=== PATIENT | female | born 2000 | race Caucasian/White ===

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

== ENCOUNTER → 2020-03-13 | Outpatient (CLI) | payer BC ==
[2020-03-13 17:25] LABS: Campylobacter Sp Not Detected (NOT DETECT); Enteroaggregative E. coli-EAEC Not Detected (NOT DETECT); Enteropathogenic E. coli-EPEC Not Detected (NOT DETECT); Enterotoxigenic E. coli-ETEC Not Detected (NOT DETECT); Plesiomonas Shigelloides Not Detected (NOT DETECT); Salmonella Sp Not Detected (NOT DETECT); Shiga Toxin-prod E. coli-STEC Not Detected (NOT DETECT); Vibrio Cholerae Not Detected (NOT DETECT); Vibrio Sp Not Detected (NOT DETECT); Yersinia Enterocolitica Not Detected (NOT DETECT)
[2020-03-13 17:26] LABS: Adenovirus F 40/41 Not Detected (NOT DETECT); Astrovirus Not Detected (NOT DETECT); Cryptosporidium Not Detected (NOT DETECT); Cyclospora Cayetanensis Not Detected (NOT DETECT); E. Coli O157 Not Detected (NOT DETECT); Entamoeba Histolytica Not Detected (NOT DETECT); Giardia Lamblia Not Detected (NOT DETECT); Norovirus GI/GII Not Detected (NOT DETECT); Rotavirus A Not Detected (NOT DETECT); Sapovirus Not Detected (NOT DETECT); Shigella/Enteroin E. coli-EIEC Not Detected (NOT DETECT)
== END | disposition home or self-care (01) ==
LOC: LAB 13:00 → LAB SHORT 13:00
PROVIDERS: Physician Assistant
DX: R19.7 Diarrhea, unspecified (principal)
CPT/HCPCS: 0097U; 87324

== ENCOUNTER 2020-11-11 05:35 | Inpatient (IN) | payer BC, OTHER ==
[~2020-11-11] VITALS: Ht 157.5 cm; Wt 83.6 kg
[2020-11-11] MEDS ORDERED: ONDA4 (06:13)
[2020-11-11] MEDS ORDERED: iron PO (06:16)
[2020-11-11 06:28] LABS: BASOPHILS ABSOLUTE AUTO 0.03 K/mm3 (0.00-0.23); BASOPHILS PERCENT AUTO 0 % (0-2); EOSINOPHILS ABSOLUTE AUTO 0.11 K/mm3 (0.00-0.68); EOSINOPHILS PERCENT AUTO 1 % (0-6); Hematocrit 37.5 % (33.0-51.0); Hemoglobin 12.6 g/dL (11.5-16.0); IMMATURE GRAN ABSOLUTE AUTO 0.11 K/mm3 (0.00-0.10); IMMATURE GRAN PERCENT AUTO 1 % (0-1); LYMPHOCYTES ABSOLUTE AUTO 2.49 K/mm3 (0.84-5.20); LYMPHOCYTES PERCENT AUTO 18 % (21-46); MONOCYTES PERCENT AUTO 6 % (4-13); Mean Corpuscular HGB 27.3 pg (26.0-34.0); Mean Corpuscular HGB Conc 33.6 g/dL (31.5-36.5); Mean Corpuscular Volume 81 fL (80-100); Mean Platelet Volume 10.3 fL (9.1-12.4); NEUTROPHILS ABSOLUTE AUTO 10.32 K/mm3 (1.96-9.15); NEUTROPHILS PERCENT AUTO 74 % (41-73); Platelet Count 232 K/mm3 (150-400); RDW Coefficient Variation 13.2 % (11.7-14.2); RDW Standard Deviation 38.9 fL (35.1-46.3); Red Blood Cell Count 4.61 M/mm3 (3.80-5.20); White Blood Cell Count 13.96 K/mm3 (4.00-11.30)
[2020-11-11 06:54] LABS: Influenza A, PCR NEGATIVE (NEGATIVE); Influenza B, PCR NEGATIVE (NEGATIVE); Resp Syncytial Virus, PCR NEGATIVE (NEGATIVE); SARS-Cov-2 (COVID-19) PCR, MMC NEGATIVE (NEGATIVE)
[2020-11-11] MEDS ORDERED: IBUP800 PO (18:35)
== END 2020-11-11 21:05 | disposition home or self-care (01) | DRG 807 ==
LOC: OBS 05:35 → BC 05:35 → OBS 06:08 → BC 06:10
PROVIDERS: Registered Nurse Community Health; ADMIT Advanced Practice Midwife
PROC: 10E0XZZ Delivery of Products of Conception, External Approach (ICD-10-PCS; principal; 2020-11-11)
PROC: 00HU33Z Insertion of Infusion Device into Spinal Canal, Percutaneous Approach (ICD-10-PCS; 2020-11-11)
PROC: 3E0R3BZ Introduction of Anesthetic Agent into Spinal Canal, Percutaneous Approach (ICD-10-PCS; 2020-11-11)
DX: O48.0 Post-term pregnancy (principal); Z37.0 Single live birth; Z3A.40 40 weeks gestation of pregnancy; O99.214 Obesity complicating childbirth; E66.9 Obesity, unspecified
CPT/HCPCS: 0241U; 36415; 51702; 85025; 86850; 86900; 86901; A9270; J2001; J2590; J3010; J7120

== ENCOUNTER → 2021-04-24 | Outpatient (CLI) | payer BC, OTHER ==
[~2021-04-24] MED LIST changes: +IBUP800 PO; +ONDA4; +iron PO
== END ==
LOC: LAB 16:15 → LAB SHORT 16:15
DX: J02.9 Acute pharyngitis, unspecified (principal)
CPT/HCPCS: 87081; 87147

== ENCOUNTER 2022-05-07 01:43 | Day surgery (SDC) | payer BC, OTHER ==
[~2022-05-07 01:43] MED LIST changes: +ONDA4 PO
== END 2022-05-07 16:06 | disposition home or self-care (01) ==
LOC: ATC 01:43
DX: O21.1 Hyperemesis gravidarum with metabolic disturbance (principal); R39.198 Other difficulties with micturition; Z3A.08 8 weeks gestation of pregnancy
CPT/HCPCS: 99211; J2765; J7121

== ENCOUNTER 2022-11-11 19:52 | Inpatient (IN) | payer BC, OTHER ==
[~2022-11-11] VITALS: Ht 157.5 cm; Wt 83.6 kg
[2022-11-11 21:08] LABS: BASOPHILS ABSOLUTE AUTO 0.03 K/mm3 (0.00-0.23); BASOPHILS PERCENT AUTO 0 % (0-2); EOSINOPHILS ABSOLUTE AUTO 0.09 K/mm3 (0.00-0.68); EOSINOPHILS PERCENT AUTO 1 % (0-6); Hematocrit 31.8 % (33.0-51.0); Hemoglobin 10.3 g/dL (11.5-16.0); IMMATURE GRAN ABSOLUTE AUTO 0.04 K/mm3 (0.00-0.10); IMMATURE GRAN PERCENT AUTO 0 % (0-1); LYMPHOCYTES ABSOLUTE AUTO 2.73 K/mm3 (0.84-5.20); LYMPHOCYTES PERCENT AUTO 24 % (21-46); MONOCYTES ABSOLUTE AUTO 0.43 K/mm3 (0.16-1.47); MONOCYTES PERCENT AUTO 4 % (4-13); Mean Corpuscular HGB 24.9 pg (26.0-34.0); Mean Corpuscular HGB Conc 32.4 g/dL (31.5-36.5); Mean Corpuscular Volume 77 fL (80-100); Mean Platelet Volume 11.2 fL (9.1-12.4); NEUTROPHILS ABSOLUTE AUTO 8.13 K/mm3 (1.96-9.15); NEUTROPHILS PERCENT AUTO 71 % (41-73); Platelet Count 221 K/mm3 (150-400); Red Blood Cell Count 4.13 M/mm3 (3.80-5.20); White Blood Cell Count 11.45 K/mm3 (4.00-11.30)
[2022-11-11] MEDS ORDERED: METF500 PO (21:33)
[2022-11-11] MEDS ORDERED: PROM25 PO (21:39)
[2022-11-13 05:44] LABS: Hematocrit 29.4 % (33.0-51.0); Hemoglobin 9.2 g/dL (11.5-16.0); Mean Corpuscular HGB 24.7 pg (26.0-34.0); Mean Corpuscular HGB Conc 31.3 g/dL (31.5-36.5); Mean Corpuscular Volume 79 fL (80-100); Platelet Count 216 K/mm3 (150-400); RDW Coefficient Variation 14.2 % (11.7-14.2); RDW Standard Deviation 40.6 fL (35.1-46.3); Red Blood Cell Count 3.72 M/mm3 (3.80-5.20); White Blood Cell Count 13.52 K/mm3 (4.00-11.30)
[2022-11-13 05:54] LABS: Glucose, Blood 115 mg/dL (70-99)
[2022-11-13] MEDS ORDERED: IBUP800 PO (09:46)
[2022-11-13] MEDS ORDERED: PRENATAL TABLE1 EAC2 PO (09:46)
== END 2022-11-13 10:40 | disposition home or self-care (01) | DRG 807 ==
LOC: BC 19:52 → OBS 19:52 → BC 19:58 → OBS 20:12 → BC 20:13
PROVIDERS: ADMIT Advanced Practice Midwife
PROC: 10E0XZZ Delivery of Products of Conception, External Approach (ICD-10-PCS; principal; 2022-11-12)
PROC: 3E0R3BZ Introduction of Anesthetic Agent into Spinal Canal, Percutaneous Approach (ICD-10-PCS; 2022-11-12)
PROC: 00HU33Z Insertion of Infusion Device into Spinal Canal, Percutaneous Approach (ICD-10-PCS; 2022-11-12)
PROC: 0HQ9XZZ Repair Perineum Skin, External Approach (ICD-10-PCS; 2022-11-12)
DX: O24.425 Gestational diabetes mellitus in childbirth, controlled by oral hypoglycemic drugs (principal); Z37.0 Single live birth; O66.0 Obstructed labor due to shoulder dystocia; O70.0 First degree perineal laceration during delivery; Z3A.38 38 weeks gestation of pregnancy; Z88.2 Allergy status to sulfonamides
CPT/HCPCS: 36415; 51702; 82947; 85025; 85027; 86850; 86900; 86901; A9270; J1885; J2210; J7120

== ENCOUNTER 2023-04-22 09:50 | Day surgery (SDC) | payer BC, OTHER ==
[2023-04-22] VITALS (12 sets, daily range): BP systolic 89–121; BP diastolic 53–84
[~2023-04-22] VITALS: Ht 157.5 cm; Wt 73.3 kg
[~2023-04-22 09:50] MED LIST changes: +METF500 PO; +PRENATAL TABLE1 EAC2 PO; +PROM25 PO
--- NOTE | 2023-04-22 10:14 | NUR ---
PT TO DAY SURGERY FOR LAPAROSCOPIC SALPINGECTOMY. CHART AND HX REVIEWED. PLAN OF CARE DISCUSSED WITH PT.
--- NOTE | 2023-04-22 14:00 | NUR ---
Into step via aleena. Pt is A&O x4. Pt reports 2/10 abdominal/incisional pain. Incision line x 2 with skin glue-no bleeding or drainage noted. Pt denies nausea. Given ice water, bette crackers, and pudding. OB here to assist pt with breast pump.
--- NOTE | 2023-04-22 14:55 | NUR ---
Patient up to Ambulate independently. Gait steady.Pt able to void. Provided with diane pads. Reviewed discharge instructions with pt and her spouse. Pt spouse assisted pt with getting changed in to her clothing.Tolerated well. Pt discharged to home-out via wheelchair with belongings and discharge instructions on hand.
== END 2023-04-22 14:55 | disposition home or self-care (01) ==
LOC: ORSCMMR 09:50 → ORD 11:30 → ORSCMMR 11:30 → ORD 15:00
PROVIDERS: Obstetrics & Gynecology
PROC: 0UT74ZZ Resection of Bilateral Fallopian Tubes, Percutaneous Endoscopic Approach (ICD-10-PCS; principal; 2023-04-22 11:30)
DX: Z30.2 Encounter for sterilization (principal); Z87.891 Personal history of nicotine dependence; E28.2 Polycystic ovarian syndrome; E11.9 Type 2 diabetes mellitus without complications; E03.9 Hypothyroidism, unspecified; Z79.899 Other long term (current) drug therapy
CPT/HCPCS: 88302; J0690; J1100; J1885; J2250; J2371; J2405; J2704; J3010; J7120